=== PATIENT | male | born 1945 | race Caucasian/White ===

== ENCOUNTER 2016-12-31 01:26 | Inpatient (IN) | payer OTHER, MEDICARE ==
[~2016-12-31] VITALS: Ht 177.8 cm; Wt 203.4 kg
[2016-12-31 01:29] VITALS: BP_SYST 108
[2016-12-31] MEDS ORDERED: ASPIRIN 81 MG TAB.CHEW PO ONE (02:00)
[2016-12-31 02:03] LABS: BASOPHILS % (AUTO) 0.6 % (0.0-2.0); EOSINOPHILS # (AUTO) 0.6 K/uL (0.0-0.4); EOSINOPHILS % (AUTO) 8.1 % (0.0-4.0); HEMATOCRIT 37.6 % (36-54); HEMOGLOBIN 12.2 g/dL (14.0-18.0); LYMPHOCYTES # (AUTO) 0.9 K/uL (1.0-5.5); LYMPHOCYTES % (AUTO) 12.2 % (20.5-51.5); MEAN CORPUSCULAR HEMOGLOBIN 27 pg (27-31); MEAN CORPUSCULAR HGB CONC 33 % (32-36); MEAN CORPUSCULAR VOLUME 82 fL (79.0-98.0); MONOCYTES # (AUTO) 0.5 K/uL (0.0-1.0); MONOCYTES % (AUTO) 6.5 % (1.7-9.3); NEUTROPHILS % (AUTO) 72.6 % (40.0-70.0); PLATELET COUNT (AUTO) 266 K/uL (130-430); RED BLOOD CELL COUNT(AUTO) 4.61 MIL/uL (4.2-6.2); RED CELL DISTRIBUTION WIDTH 14.2 % (9.0-15.0)
[2016-12-31 02:05] LABS: CALCIUM 8.2 mg/dL (8.4-11.0); CREATININE 1.99 mg/dL (0.55-1.30); POTASSIUM 3.8 mmol/L (3.5-5.1)
[2016-12-31 02:10] LABS: BLOOD GAS PH 7.403 (7.350-7.450)
[2016-12-31 02:11] LABS: ABG TOTAL HEMOGLOBIN 12.2 G/dL (12.0-18.0); BLOOD GAS BASE EXCESS 8.2 mmol/L (-3.0-3.0); BLOOD GAS COHb% 0.9 % (0.5-1.5); BLOOD GAS HHB 6.8 % (0.0-6.0); BLOOD O2Hb% 91.8 % (94.0-97.0)
[2016-12-31 02:13] LABS: TOTAL BILIRUBIN 0.3 mg/dL (0.0-1.0)
[2016-12-31 02:14] LABS: ALBUMIN 2.5 g/dL (3.4-4.8)
[2016-12-31 02:43] LABS: INR 1.8 (0.80-1.20); PROTHROMBIN TIME 20.5 SECS (9.5-12.5)
[2016-12-31] MEDS ORDERED: NACL 0.9% 1,000 ML IV ONE (05:15)
[2016-12-31] MEDS ORDERED: PREG75CA PO (06:48)
[2016-12-31] MEDS ORDERED: FERR-57 PO (06:48)
[2016-12-31] MEDS ORDERED: LOSA25TA3 PO (06:48)
[2016-12-31] MEDS ORDERED: GABA600T PO (06:48)
[2016-12-31] MEDS ORDERED: NYST15PO2 TP (06:48)
[2016-12-31] MEDS ORDERED: WARF7.5T2 PO (06:48)
[2016-12-31] MEDS ORDERED: ASCO-339 PO (06:48)
[2016-12-31] MEDS ORDERED: HYDR-4100 PO (06:48)
[2016-12-31] MEDS ORDERED: VITD2000 PO (06:48)
[2016-12-31] MEDS ORDERED: BECL8.7A5 INH (06:48)
[2016-12-31] MEDS ORDERED: ZINC10LO5 PO (06:48)
[2016-12-31] MEDS ORDERED: MAGN250T31 PO (06:48)
[2016-12-31] MEDS ORDERED: OMEP20CA10 PO (06:48)
[2016-12-31] MEDS ORDERED: MULT-1117 PO (06:48)
[2016-12-31] MEDS ORDERED: INSU100V11 SQ (06:48)
[2016-12-31] MEDS ORDERED: DONE5TAB3 PO (06:48)
[2016-12-31] MEDS ORDERED: PRIM50TA31 PO (06:48)
[2016-12-31] MEDS ORDERED: ALBU2.5V7 INH (06:48)
[2016-12-31] MEDS ORDERED: SITA100T7 PO (06:48)
[2016-12-31] MEDS ORDERED: NOR10 PO (06:48)
[2016-12-31] MEDS ORDERED: FURO40TA5 PO (06:48)
[2016-12-31] MEDS ORDERED: LEVO100T9 PO (06:48)
[2016-12-31] MEDS ORDERED: GLUCOSE 15 GM GEL (in 37.5 GM TUBE) PO PRN ×2 (08:15)
[2016-12-31] MEDS ORDERED: DEXTROSE 50%-WATER 50 ML DISP.SYRIN IVP PRN ×2 (08:15)
[2016-12-31 08:48] VITALS: BP_SYST 148
[2016-12-31] MEDS: INSULIN REGULAR, HUMAN 100 UNITS/ML, 10 ML VIAL (novoLIN R) SUBCUT PRN ×3 (11:42→21:25)
[2016-12-31] MEDS: LEVOFLOXACIN 250 MG/D5W 50 ML IV SCH (12:00)
[2016-12-31] MEDS ORDERED: ALBUTEROL SULFATE 0.083% 2.5 MG/3 ML VIAL.NEB INH PRN ×2 (12:00→18:00)
[2016-12-31] MEDS: FUROSEMIDE 40 MG/4 ML VIAL IVP SCH (12:00)
[2016-12-31] MEDS ORDERED: IPRATROPIUM BROM 0.5 MG/2.5 ML VIAL.NEB (ATROVENT) INH PRN (12:00)
[2016-12-31 12:42] VITALS: BP_SYST 123
[2016-12-31] MEDS: ALBUTEROL SULFATE 0.083% 2.5 MG/3 ML VIAL.NEB INH SCH ×2 (13:00→19:44)
[2016-12-31] MEDS: IPRATROPIUM BROM 0.5 MG/2.5 ML VIAL.NEB (ATROVENT) INH SCH ×2 (13:00→19:44)
[2016-12-31] MEDS ORDERED: FUROSEMIDE 40 MG/4 ML VIAL IVP ONE (13:00)
[2016-12-31 13:18] LABS: BLOOD GAS PH 7.383 (7.350-7.450)
[2016-12-31 13:19] LABS: ABG TOTAL HEMOGLOBIN 12.3 G/dL (12.0-18.0); BLOOD GAS BASE EXCESS 11.3 mmol/L (-3.0-3.0); BLOOD GAS COHb% 0.8 % (0.5-1.5); BLOOD GAS HHB 5.7 % (0.0-6.0); BLOOD O2Hb% 92.9 % (94.0-97.0)
[2016-12-31 13:36] VITALS: BP_SYST 123
[2016-12-31 16:23] VITALS: BP_SYST 158
[2016-12-31] MEDS ORDERED: NON-FORMULARY MEDICATION (Zinc Gluconate (Zinc) 50 MG) PO SCH (18:00)
[2016-12-31] MEDS ORDERED: HYDROcodone/ACETAMIN 10-325 MG TAB PO SCH (18:00)
[2016-12-31] MEDS ORDERED: FUROSEMIDE 40 MG TABLET PO SCH (18:00)
[2016-12-31] MEDS: amLODIPine BESYLATE 10 MG TABLET PO SCH (19:32)
[2016-12-31] MEDS: WARFARIN SODIUM 4 MG TABLET PO SCH (19:33)
[2016-12-31 20:15] VITALS: BP_SYST 140
[2016-12-31] MEDS: GABAPENTIN 400 MG CAPSULE PO SCH (20:33)
[2016-12-31] MEDS: DONEPEZIL HCL 5 MG TABLET (ARICEPT) PO SCH (20:33)
[2016-12-31] MEDS: HYDROcodone/ACETAMIN 10-325 MG TAB PO PRN (20:34)
[2016-12-31] MEDS: CEFEPIME 1 GM in D5W 50 ML IV SCH (21:19)
[2017-01-01] VITALS (7 sets, daily range): BP systolic 97–143
[2017-01-01] MEDS: IPRATROPIUM BROM 0.5 MG/2.5 ML VIAL.NEB (ATROVENT) INH SCH ×4 (01:26→19:34)
[2017-01-01] MEDS: ALBUTEROL SULFATE 0.083% 2.5 MG/3 ML VIAL.NEB INH SCH ×4 (01:26→19:34)
[2017-01-01] MEDS: LEVOTHYROXINE SODIUM 0.1 MG TABLET PO SCH (06:21)
[2017-01-01] MEDS: ASCORBIC ACID 500 MG TABLET PO SCH (06:21)
[2017-01-01] MEDS: INSULIN REGULAR, HUMAN 100 UNITS/ML, 10 ML VIAL (novoLIN R) SUBCUT PRN ×3 (06:28→22:23)
[2017-01-01 07:49] LABS: BASOPHILS % (AUTO) 0.3 % (0.0-2.0); EOSINOPHILS # (AUTO) 0.9 K/uL (0.0-0.4); EOSINOPHILS % (AUTO) 9.4 % (0.0-4.0); HEMATOCRIT 37.9 % (36-54); HEMOGLOBIN 12.1 g/dL (14.0-18.0); LYMPHOCYTES # (AUTO) 0.6 K/uL (1.0-5.5); LYMPHOCYTES % (AUTO) 6.5 % (20.5-51.5); MEAN CORPUSCULAR HEMOGLOBIN 26 pg (27-31); MEAN CORPUSCULAR HGB CONC 32 % (32-36); MEAN CORPUSCULAR VOLUME 82 fL (79.0-98.0); MONOCYTES # (AUTO) 0.2 K/uL (0.0-1.0); MONOCYTES % (AUTO) 1.6 % (1.7-9.3); NEUTROPHILS # (AUTO) 7.9 K/uL (1.8-7.7); NEUTROPHILS % (AUTO) 82.2 % (40.0-70.0); PLATELET COUNT (AUTO) 312 K/uL (130-430); RED BLOOD CELL COUNT(AUTO) 4.63 MIL/uL (4.2-6.2); RED CELL DISTRIBUTION WIDTH 14.2 % (9.0-15.0)
[2017-01-01 07:58] LABS: WHITE BLOOD COUNT (AUTO) 9.6 K/uL (4.8-10.8)
[2017-01-01 08:07] LABS: BLOOD GAS PH 7.419 (7.350-7.450)
[2017-01-01 08:07] LABS: PROTHROMBIN TIME 22.5 SECS (9.5-12.5)
[2017-01-01 08:08] LABS: ABG TOTAL HEMOGLOBIN 13.3 G/dL (12.0-18.0); BLOOD GAS BASE EXCESS 8.2 mmol/L (-3.0-3.0); BLOOD GAS HHB 18.8 % (0.0-6.0)
[2017-01-01 08:11] LABS: ALBUMIN 2.5 g/dL (3.4-4.8); CALCIUM 8.2 mg/dL (8.4-11.0); CREATININE 2.03 mg/dL (0.55-1.30); POTASSIUM 3.3 mmol/L (3.5-5.1); TOTAL BILIRUBIN 0.3 mg/dL (0.0-1.0); TOTAL PROTEIN, SERUM 7.8 g/dL (6.4-8.3)
[2017-01-01] MEDS: CEFEPIME 1 GM in D5W 50 ML IV SCH ×2 (09:10→22:07)
[2017-01-01] MEDS: CHOLECALCIFEROL (VITAMIN D3) 2,000 UNIT TABLET PO SCH (09:11)
[2017-01-01] MEDS: PREGABALIN 75 MG CAPSULE (LYRICA) PO SCH (09:11)
[2017-01-01] MEDS: OMEPRAZOLE 20 MG CAPSULE.DR (PriLOSEC) PO SCH (09:11)
[2017-01-01] MEDS: MULTIVITAMINS TAB 1 TABLET PO SCH (09:11)
[2017-01-01] MEDS: PRIMIDONE 50 MG TABLET PO SCH (09:11)
[2017-01-01] MEDS: FUROSEMIDE 40 MG/4 ML VIAL IVP SCH (09:12)
[2017-01-01] MEDS: LOSARTAN POTASSIUM 25 MG TABLET PO SCH (09:12)
[2017-01-01] MEDS: NYSTATIN 15 GM TOPICAL POWDER TP SCH (09:13)
[2017-01-01] MEDS: LEVOFLOXACIN 250 MG/D5W 50 ML IV SCH (12:00)
[2017-01-01] MEDS ORDERED: VANCOMYCIN HCL 1,750 MG in NS 500 ML IV SCH (14:00)
[2017-01-01] MEDS ORDERED: MAGNESIUM OXIDE 400 MG TABLET PO SCH (17:00)
[2017-01-01] MEDS: WARFARIN SODIUM 4 MG TABLET PO SCH (17:40)
[2017-01-01] MEDS: FERROUS SULFATE 325 MG TABLET.DR PO SCH (17:40)
[2017-01-01] MEDS: amLODIPine BESYLATE 10 MG TABLET PO SCH (17:45)
[2017-01-01] MEDS: MUPIROCIN 2% TOPICAL OINTMENT 22 GM TP SCH ×2 (17:47→21:39)
[2017-01-01] MEDS: FLUTICASONE FUROATE 200 MCG BLST.W.DEV INH SCH (17:47)
[2017-01-01] MEDS ORDERED: CEFEPIME 1 GM/VIAL (MAXIPIME) ONE (21:28)
[2017-01-01] MEDS: DONEPEZIL HCL 5 MG TABLET (ARICEPT) PO SCH (21:40)
[2017-01-01] MEDS: GABAPENTIN 400 MG CAPSULE PO SCH (21:40)
[2017-01-02] VITALS: BP_SYST 101
[2017-01-02] MEDS: ALBUTEROL SULFATE 0.083% 2.5 MG/3 ML VIAL.NEB INH SCH ×4 (00:24→19:00)
[2017-01-02] MEDS: IPRATROPIUM BROM 0.5 MG/2.5 ML VIAL.NEB (ATROVENT) INH SCH ×4 (00:25→19:00)
[2017-01-02 04:19] VITALS: BP_SYST 104
[2017-01-02] MEDS: LEVOTHYROXINE SODIUM 0.1 MG TABLET PO SCH (05:48)
[2017-01-02] MEDS: ASCORBIC ACID 500 MG TABLET PO SCH (05:48)
[2017-01-02 07:32] LABS: BASOPHILS % (AUTO) 0.1 % (0.0-2.0); EOSINOPHILS # (AUTO) 0.4 K/uL (0.0-0.4); EOSINOPHILS % (AUTO) 3.4 % (0.0-4.0); HEMATOCRIT 30.8 % (36-54); HEMOGLOBIN 10.2 g/dL (14.0-18.0); LYMPHOCYTES # (AUTO) 0.4 K/uL (1.0-5.5); LYMPHOCYTES % (AUTO) 3.5 % (20.5-51.5); MEAN CORPUSCULAR HEMOGLOBIN 27 pg (27-31); MEAN CORPUSCULAR HGB CONC 33 % (32-36); MEAN CORPUSCULAR VOLUME 82 fL (79.0-98.0); MONOCYTES # (AUTO) 0.5 K/uL (0.0-1.0); MONOCYTES % (AUTO) 3.8 % (1.7-9.3); NEUTROPHILS # (AUTO) 11.4 K/uL (1.8-7.7); NEUTROPHILS % (AUTO) 89.2 % (40.0-70.0); PLATELET COUNT (AUTO) 243 K/uL (130-430); RED BLOOD CELL COUNT(AUTO) 3.77 MIL/uL (4.2-6.2); WHITE BLOOD COUNT (AUTO) 12.7 K/uL (4.8-10.8)
[2017-01-02 07:34] LABS: INR 3.4 (0.80-1.20)
[2017-01-02 07:45] LABS: PROTHROMBIN TIME 38.4 SECS (9.5-12.5)
[2017-01-02 07:50] LABS: ALBUMIN 2.2 g/dL (3.4-4.8); CALCIUM 7.6 mg/dL (8.4-11.0); CREATININE 2.11 mg/dL (0.55-1.30); POTASSIUM 3.6 mmol/L (3.5-5.1); TOTAL BILIRUBIN 0.3 mg/dL (0.0-1.0); TOTAL PROTEIN, SERUM 6.8 g/dL (6.4-8.3)
[2017-01-02 08:00] VITALS: BP_SYST 110
[2017-01-02] MEDS: FLUTICASONE FUROATE 200 MCG BLST.W.DEV INH SCH (09:00)
[2017-01-02] MEDS ORDERED: LIDOCAINE 1%, 20 ML MDV 0 ML ONE (09:08)
[2017-01-02] MEDS ORDERED: LIDOCAINE 2% JELLY UROJECT 10 ML MM ONE (09:08)
[2017-01-02] MEDS ORDERED: MIDAZOLAM HCL 5 MG/5 ML VIAL ONE (09:08)
[2017-01-02] MEDS ORDERED: fentaNYL CITRATE/PF 100 MCG/2 ML AMP ONE (09:08)
[2017-01-02] MEDS: FUROSEMIDE 40 MG/4 ML VIAL IVP SCH (09:28)
[2017-01-02] MEDS: MUPIROCIN 2% TOPICAL OINTMENT 22 GM TP SCH ×2 (09:28→21:09)
[2017-01-02] MEDS: NYSTATIN 15 GM TOPICAL POWDER TP SCH (09:29)
[2017-01-02] MEDS ORDERED: LIDOCAINE MPF 2% 5mL VIAL INH ONE (09:30)
[2017-01-02] MEDS: CEFEPIME 1 GM in D5W 50 ML IV SCH ×2 (10:53→20:28)
[2017-01-02 11:20] LABS: ABG TOTAL HEMOGLOBIN 10.9 G/dL (12.0-18.0); BLOOD GAS BASE EXCESS 9.6 mmol/L (-3.0-3.0); BLOOD GAS COHb% 0.5 % (0.5-1.5); BLOOD GAS HHB 6.2 % (0.0-6.0); BLOOD O2Hb% 93.1 % (94.0-97.0)
[2017-01-02 12:24] VITALS: BP_SYST 115
[2017-01-02] MEDS: ACETYLCYSTEINE 20% 4 ML VIAL (RT) INH SCH ×2 (15:00→20:48)
[2017-01-02 15:36] VITALS: BP_SYST 103
[2017-01-02] MEDS: PREGABALIN 75 MG CAPSULE (LYRICA) PO SCH (15:38)
[2017-01-02] MEDS: LOSARTAN POTASSIUM 25 MG TABLET PO SCH (15:38)
[2017-01-02] MEDS: MULTIVITAMINS TAB 1 TABLET PO SCH (15:38)
[2017-01-02] MEDS: PRIMIDONE 50 MG TABLET PO SCH (15:39)
[2017-01-02] MEDS: OMEPRAZOLE 20 MG CAPSULE.DR (PriLOSEC) PO SCH (15:39)
[2017-01-02] MEDS: CHOLECALCIFEROL (VITAMIN D3) 2,000 UNIT TABLET PO SCH (15:39)
[2017-01-02] MEDS: amLODIPine BESYLATE 10 MG TABLET PO SCH (17:57)
[2017-01-02] MEDS: INSULIN REGULAR, HUMAN 100 UNITS/ML, 10 ML VIAL (novoLIN R) SUBCUT PRN ×2 (18:03→21:41)
[2017-01-02] MEDS: FERROUS SULFATE 325 MG TABLET.DR PO SCH (18:04)
[2017-01-02 19:30] VITALS: BP_SYST 110
[2017-01-02] MEDS: DONEPEZIL HCL 5 MG TABLET (ARICEPT) PO SCH (21:08)
[2017-01-02] MEDS: GABAPENTIN 400 MG CAPSULE PO SCH (21:13)
[2017-01-02] MEDS: LINEZOLID 300 ML IV SCH (21:17)
[2017-01-03] VITALS: BP_SYST 139
[2017-01-03] MEDS: ALBUTEROL SULFATE 0.083% 2.5 MG/3 ML VIAL.NEB INH SCH ×4 (00:57→19:49)
[2017-01-03] MEDS: IPRATROPIUM BROM 0.5 MG/2.5 ML VIAL.NEB (ATROVENT) INH SCH ×4 (00:57→19:49)
[2017-01-03 04:59] VITALS: BP_SYST 119
[2017-01-03] MEDS: ASCORBIC ACID 500 MG TABLET PO SCH (06:05)
[2017-01-03] MEDS: LEVOTHYROXINE SODIUM 0.1 MG TABLET PO SCH (06:05)
[2017-01-03] MEDS: INSULIN REGULAR, HUMAN 100 UNITS/ML, 10 ML VIAL (novoLIN R) SUBCUT PRN ×4 (06:13→20:55)
[2017-01-03] MEDS: ACETYLCYSTEINE 20% 4 ML VIAL (RT) INH SCH ×3 (07:18→19:49)
[2017-01-03 07:25] LABS: BASOPHILS # (AUTO) 0.1 K/uL (0.0-0.2); BASOPHILS % (AUTO) 0.6 % (0.0-2.0); EOSINOPHILS # (AUTO) 0.7 K/uL (0.0-0.4); HEMATOCRIT 31.9 % (36-54); HEMOGLOBIN 10.6 g/dL (14.0-18.0); LYMPHOCYTES # (AUTO) 0.7 K/uL (1.0-5.5); LYMPHOCYTES % (AUTO) 6.9 % (20.5-51.5); MEAN CORPUSCULAR HEMOGLOBIN 27 pg (27-31); MEAN CORPUSCULAR HGB CONC 33 % (32-36); MEAN CORPUSCULAR VOLUME 82 fL (79.0-98.0); MONOCYTES # (AUTO) 0.4 K/uL (0.0-1.0); MONOCYTES % (AUTO) 3.8 % (1.7-9.3); NEUTROPHILS # (AUTO) 8.2 K/uL (1.8-7.7); NEUTROPHILS % (AUTO) 81.7 % (40.0-70.0); PLATELET COUNT (AUTO) 259 K/uL (130-430); RED BLOOD CELL COUNT(AUTO) 3.88 MIL/uL (4.2-6.2); WHITE BLOOD COUNT (AUTO) 10.1 K/uL (4.8-10.8)
[2017-01-03 07:50] LABS: ALBUMIN 2.1 g/dL (3.4-4.8); CALCIUM 7.6 mg/dL (8.4-11.0); CREATININE 1.97 mg/dL (0.55-1.30); POTASSIUM 3.7 mmol/L (3.5-5.1); TOTAL BILIRUBIN 0.3 mg/dL (0.0-1.0); TOTAL PROTEIN, SERUM 6.8 g/dL (6.4-8.3)
[2017-01-03 07:57] LABS: INR 2.9 (0.80-1.20)
[2017-01-03 08:09] LABS: PROTHROMBIN TIME 33.1 SECS (9.5-12.5)
[2017-01-03 08:24] VITALS: BP_SYST 128
[2017-01-03] MEDS: PREGABALIN 75 MG CAPSULE (LYRICA) PO SCH (08:41)
[2017-01-03] MEDS: MULTIVITAMINS TAB 1 TABLET PO SCH (08:41)
[2017-01-03] MEDS: LOSARTAN POTASSIUM 25 MG TABLET PO SCH (08:41)
[2017-01-03] MEDS: PRIMIDONE 50 MG TABLET PO SCH (08:41)
[2017-01-03] MEDS: OMEPRAZOLE 20 MG CAPSULE.DR (PriLOSEC) PO SCH (08:41)
[2017-01-03] MEDS: CHOLECALCIFEROL (VITAMIN D3) 2,000 UNIT TABLET PO SCH (08:41)
[2017-01-03] MEDS: CEFEPIME 1 GM in D5W 50 ML IV SCH ×2 (08:43→20:29)
[2017-01-03] MEDS: MUPIROCIN 2% TOPICAL OINTMENT 22 GM TP SCH ×2 (08:44→21:56)
[2017-01-03] MEDS: NYSTATIN 15 GM TOPICAL POWDER TP SCH (08:44)
[2017-01-03] MEDS: FUROSEMIDE 40 MG/4 ML VIAL IVP SCH (08:44)
[2017-01-03] MEDS: FLUTICASONE FUROATE 200 MCG BLST.W.DEV INH SCH (09:00)
[2017-01-03 09:21] VITALS: BP_SYST 128
[2017-01-03] MEDS: LINEZOLID 300 ML IV SCH ×2 (09:32→21:54)
[2017-01-03] MEDS: HYDROcodone/ACETAMIN 10-325 MG TAB PO PRN (10:35)
[2017-01-03 12:09] VITALS: BP_SYST 99
[2017-01-03 16:45] VITALS: BP_SYST 112
[2017-01-03] MEDS: FERROUS SULFATE 325 MG TABLET.DR PO SCH (17:33)
[2017-01-03] MEDS: amLODIPine BESYLATE 10 MG TABLET PO SCH (17:33)
[2017-01-03] MEDS: WARFARIN SODIUM 4 MG TABLET PO SCH (18:20)
[2017-01-03] MEDS: DONEPEZIL HCL 5 MG TABLET (ARICEPT) PO SCH (20:50)
[2017-01-03] MEDS: GABAPENTIN 400 MG CAPSULE PO SCH (20:51)
[2017-01-03] MEDS: ZOLPIDEM TARTRATE 5 MG TABLET PO PRN (23:00)
[2017-01-04 00:03] VITALS: BP_SYST 109
[2017-01-04] MEDS: ALBUTEROL SULFATE 0.083% 2.5 MG/3 ML VIAL.NEB INH SCH ×4 (02:04→19:32)
[2017-01-04] MEDS: IPRATROPIUM BROM 0.5 MG/2.5 ML VIAL.NEB (ATROVENT) INH SCH ×4 (02:05→19:32)
[2017-01-04 03:45] VITALS: BP_SYST 104
[2017-01-04] MEDS: LEVOTHYROXINE SODIUM 0.1 MG TABLET PO SCH (06:07)
[2017-01-04] MEDS: ASCORBIC ACID 500 MG TABLET PO SCH (06:07)
[2017-01-04] MEDS: INSULIN REGULAR, HUMAN 100 UNITS/ML, 10 ML VIAL (novoLIN R) SUBCUT PRN ×4 (06:11→22:15)
[2017-01-04 07:19] LABS: EOSINOPHILS # (AUTO) 0.8 K/uL (0.0-0.4); EOSINOPHILS % (AUTO) 8.3 % (0.0-4.0); HEMATOCRIT 33.4 % (36-54); HEMOGLOBIN 10.7 g/dL (14.0-18.0); LYMPHOCYTES # (AUTO) 0.7 K/uL (1.0-5.5); LYMPHOCYTES % (AUTO) 7.7 % (20.5-51.5); MEAN CORPUSCULAR HEMOGLOBIN 27 pg (27-31); MEAN CORPUSCULAR HGB CONC 32 % (32-36); MEAN CORPUSCULAR VOLUME 83 fL (79.0-98.0); MONOCYTES # (AUTO) 0.4 K/uL (0.0-1.0); MONOCYTES % (AUTO) 4.2 % (1.7-9.3); NEUTROPHILS # (AUTO) 7.5 K/uL (1.8-7.7); NEUTROPHILS % (AUTO) 79.8 % (40.0-70.0); PLATELET COUNT (AUTO) 287 K/uL (130-430); RED BLOOD CELL COUNT(AUTO) 4.05 MIL/uL (4.2-6.2); WHITE BLOOD COUNT (AUTO) 9.4 K/uL (4.8-10.8)
[2017-01-04] MEDS: ACETYLCYSTEINE 20% 4 ML VIAL (RT) INH SCH ×3 (07:25→19:54)
[2017-01-04 07:55] VITALS: BP_SYST 119
[2017-01-04 07:56] LABS: INR 2.6 (0.80-1.20); PROTHROMBIN TIME 28.8 SECS (9.5-12.5)
[2017-01-04 07:57] LABS: CHLORIDE 99 mmol/L (98-107); CREATININE 2.06 mg/dL (0.55-1.30); GLUCOSE 247 mg/dL (70-99); POTASSIUM 4.1 mmol/L (3.5-5.1); SODIUM SERUM 137 mmol/L (136-145); UREA NITROGEN, BLOOD 51 mg/dL (8-21)
[2017-01-04 07:59] LABS: ANION GAP < 3 (5-15); GFR AFRICAN AMERICAN 41 mL/min (>90)
[2017-01-04] MEDS: CEFEPIME 1 GM in D5W 50 ML IV SCH ×2 (08:30→21:13)
[2017-01-04] MEDS: FUROSEMIDE 40 MG/4 ML VIAL IVP SCH (08:31)
[2017-01-04] MEDS: MUPIROCIN 2% TOPICAL OINTMENT 22 GM TP SCH ×2 (08:32→22:13)
[2017-01-04] MEDS: CHOLECALCIFEROL (VITAMIN D3) 2,000 UNIT TABLET PO SCH (08:33)
[2017-01-04] MEDS: PREGABALIN 75 MG CAPSULE (LYRICA) PO SCH (08:34)
[2017-01-04] MEDS: MULTIVITAMINS TAB 1 TABLET PO SCH (08:34)
[2017-01-04] MEDS: OMEPRAZOLE 20 MG CAPSULE.DR (PriLOSEC) PO SCH (08:34)
[2017-01-04] MEDS: NYSTATIN 15 GM TOPICAL POWDER TP SCH (08:35)
[2017-01-04] MEDS: FLUTICASONE FUROATE 200 MCG BLST.W.DEV INH SCH (09:00)
[2017-01-04] MEDS: LOSARTAN POTASSIUM 25 MG TABLET PO SCH (09:00)
[2017-01-04] MEDS: LINEZOLID 300 ML IV SCH ×2 (10:17→22:12)
[2017-01-04] MEDS: PRIMIDONE 50 MG TABLET PO SCH (10:18)
[2017-01-04 15:33] VITALS: BP_SYST 149
[2017-01-04 15:51] VITALS: BP_SYST 108
[2017-01-04 17:25] VITALS: BP_SYST 108
[2017-01-04] MEDS: FERROUS SULFATE 325 MG TABLET.DR PO SCH (18:25)
[2017-01-04] MEDS: amLODIPine BESYLATE 10 MG TABLET PO SCH (18:27)
[2017-01-04] MEDS: WARFARIN SODIUM 4 MG TABLET PO SCH (18:28)
[2017-01-04] MEDS: DONEPEZIL HCL 5 MG TABLET (ARICEPT) PO SCH (21:12)
[2017-01-04] MEDS: GABAPENTIN 400 MG CAPSULE PO SCH (21:12)
[2017-01-05] VITALS (8 sets, daily range): BP systolic 100–138
[2017-01-05] MEDS: ALBUTEROL SULFATE 0.083% 2.5 MG/3 ML VIAL.NEB INH SCH ×4 (05:34→20:15)
[2017-01-05] MEDS: IPRATROPIUM BROM 0.5 MG/2.5 ML VIAL.NEB (ATROVENT) INH SCH ×4 (05:35→20:15)
[2017-01-05] MEDS: ASCORBIC ACID 500 MG TABLET PO SCH (06:18)
[2017-01-05] MEDS: LEVOTHYROXINE SODIUM 0.1 MG TABLET PO SCH (06:18)
[2017-01-05] MEDS: INSULIN REGULAR, HUMAN 100 UNITS/ML, 10 ML VIAL (novoLIN R) SUBCUT PRN ×4 (06:19→21:09)
[2017-01-05] MEDS: ACETYLCYSTEINE 20% 4 ML VIAL (RT) INH SCH ×2 (07:00→17:19)
[2017-01-05 07:13] LABS: INR 3.1 (0.80-1.20)
[2017-01-05 07:38] LABS: PROTHROMBIN TIME 34.8 SECS (9.5-12.5)
[2017-01-05] MEDS: CEFEPIME 1 GM in D5W 50 ML IV SCH ×2 (08:28→21:17)
[2017-01-05] MEDS: FUROSEMIDE 40 MG/4 ML VIAL IVP SCH (08:29)
[2017-01-05] MEDS: NYSTATIN 15 GM TOPICAL POWDER TP SCH (08:30)
[2017-01-05] MEDS: MUPIROCIN 2% TOPICAL OINTMENT 22 GM TP SCH ×2 (08:30→21:18)
[2017-01-05] MEDS: LOSARTAN POTASSIUM 25 MG TABLET PO SCH (08:30)
[2017-01-05] MEDS: CHOLECALCIFEROL (VITAMIN D3) 2,000 UNIT TABLET PO SCH (08:30)
[2017-01-05] MEDS: OMEPRAZOLE 20 MG CAPSULE.DR (PriLOSEC) PO SCH (08:30)
[2017-01-05] MEDS: PRIMIDONE 50 MG TABLET PO SCH (08:31)
[2017-01-05] MEDS: PREGABALIN 75 MG CAPSULE (LYRICA) PO SCH (08:31)
[2017-01-05] MEDS: NEPHROVITE, (FOLIC ACID/VITAMIN B COMP W-C 1 TAB) PO SCH (08:31)
[2017-01-05] MEDS: FLUTICASONE FUROATE 200 MCG BLST.W.DEV INH SCH (09:00)
[2017-01-05] MEDS: LINEZOLID 300 ML IV SCH ×2 (10:11→21:17)
[2017-01-05] MEDS: WARFARIN SODIUM 2 MG TABLET PO SCH (17:46)
[2017-01-05] MEDS: FERROUS SULFATE 325 MG TABLET.DR PO SCH (17:47)
[2017-01-05] MEDS: amLODIPine BESYLATE 10 MG TABLET PO SCH (17:50)
[2017-01-05] MEDS: DONEPEZIL HCL 5 MG TABLET (ARICEPT) PO SCH (21:18)
[2017-01-05] MEDS: GABAPENTIN 400 MG CAPSULE PO SCH (21:21)
[2017-01-06] MEDS: IPRATROPIUM BROM 0.5 MG/2.5 ML VIAL.NEB (ATROVENT) INH SCH ×5 (01:00→22:51)
[2017-01-06] MEDS: ALBUTEROL SULFATE 0.083% 2.5 MG/3 ML VIAL.NEB INH SCH ×5 (01:00→22:51)
[2017-01-06] MEDS: ACETYLCYSTEINE 20% 4 ML VIAL (RT) INH SCH ×4 (02:19→22:50)
[2017-01-06 05:13] VITALS: BP_SYST 99
[2017-01-06] MEDS: INSULIN REGULAR, HUMAN 100 UNITS/ML, 10 ML VIAL (novoLIN R) SUBCUT PRN ×4 (07:00→21:43)
[2017-01-06] MEDS: LEVOTHYROXINE SODIUM 0.1 MG TABLET PO SCH (07:01)
[2017-01-06] MEDS: ASCORBIC ACID 500 MG TABLET PO SCH (07:01)
[2017-01-06 08:04] VITALS: BP_SYST 131
[2017-01-06 08:05] LABS: EOSINOPHILS # (AUTO) 0.6 K/uL (0.0-0.4); EOSINOPHILS % (AUTO) 6.4 % (0.0-4.0); HEMATOCRIT 30.9 % (36-54); HEMOGLOBIN 10.1 g/dL (14.0-18.0); LYMPHOCYTES # (AUTO) 0.9 K/uL (1.0-5.5); LYMPHOCYTES % (AUTO) 8.8 % (20.5-51.5); MEAN CORPUSCULAR HEMOGLOBIN 27 pg (27-31); MEAN CORPUSCULAR HGB CONC 33 % (32-36); MEAN CORPUSCULAR VOLUME 82 fL (79.0-98.0); MONOCYTES # (AUTO) 0.5 K/uL (0.0-1.0); MONOCYTES % (AUTO) 4.7 % (1.7-9.3); NEUTROPHILS # (AUTO) 7.9 K/uL (1.8-7.7); NEUTROPHILS % (AUTO) 80.1 % (40.0-70.0); PLATELET COUNT (AUTO) 280 K/uL (130-430); RED BLOOD CELL COUNT(AUTO) 3.77 MIL/uL (4.2-6.2); RED CELL DISTRIBUTION WIDTH 13.9 % (9.0-15.0); WHITE BLOOD COUNT (AUTO) 9.9 K/uL (4.8-10.8)
[2017-01-06 08:10] LABS: INR 2.2 (0.80-1.20); PROTHROMBIN TIME 24.2 SECS (9.5-12.5)
[2017-01-06] MEDS: NYSTATIN 15 GM TOPICAL POWDER TP SCH (08:20)
[2017-01-06] MEDS: FUROSEMIDE 40 MG/4 ML VIAL IVP SCH (08:20)
[2017-01-06] MEDS: CEFEPIME 1 GM in D5W 50 ML IV SCH ×2 (08:20→21:33)
[2017-01-06] MEDS: CHOLECALCIFEROL (VITAMIN D3) 2,000 UNIT TABLET PO SCH (08:21)
[2017-01-06] MEDS: PREGABALIN 75 MG CAPSULE (LYRICA) PO SCH (08:21)
[2017-01-06] MEDS: LOSARTAN POTASSIUM 25 MG TABLET PO SCH (08:21)
[2017-01-06] MEDS: NEPHROVITE, (FOLIC ACID/VITAMIN B COMP W-C 1 TAB) PO SCH (08:21)
[2017-01-06] MEDS: OMEPRAZOLE 20 MG CAPSULE.DR (PriLOSEC) PO SCH (08:21)
[2017-01-06] MEDS: PRIMIDONE 50 MG TABLET PO SCH (08:21)
[2017-01-06 08:22] LABS: CALCIUM 7.5 mg/dL (8.4-11.0); CREATININE 2.15 mg/dL (0.55-1.30); POTASSIUM 3.5 mmol/L (3.5-5.1); TOTAL BILIRUBIN 0.2 mg/dL (0.0-1.0); TOTAL PROTEIN, SERUM 6.3 g/dL (6.4-8.3)
[2017-01-06] MEDS: FLUTICASONE FUROATE 200 MCG BLST.W.DEV INH SCH (09:00)
[2017-01-06] MEDS: LINEZOLID 300 ML IV SCH ×2 (09:09→21:33)
[2017-01-06] MEDS: MUPIROCIN 2% TOPICAL OINTMENT 22 GM TP SCH ×2 (09:12→21:35)
[2017-01-06 12:02] VITALS: BP_SYST 106
[2017-01-06 15:18] VITALS: BP_SYST 106
[2017-01-06 16:32] VITALS: BP_SYST 119
[2017-01-06] MEDS: FERROUS SULFATE 325 MG TABLET.DR PO SCH (17:36)
[2017-01-06] MEDS: WARFARIN SODIUM 2 MG TABLET PO SCH (17:38)
[2017-01-06] MEDS: amLODIPine BESYLATE 10 MG TABLET PO SCH (17:40)
[2017-01-06] MEDS: DONEPEZIL HCL 5 MG TABLET (ARICEPT) PO SCH (21:32)
[2017-01-06] MEDS: GABAPENTIN 400 MG CAPSULE PO SCH (21:32)
[2017-01-06 23:55] VITALS: BP_SYST 119
[2017-01-07 04:08] VITALS: BP_SYST 122
[2017-01-07] MEDS: INSULIN REGULAR, HUMAN 100 UNITS/ML, 10 ML VIAL (novoLIN R) SUBCUT PRN ×3 (06:33→21:09)
[2017-01-07] MEDS: ASCORBIC ACID 500 MG TABLET PO SCH (06:33)
[2017-01-07] MEDS: LEVOTHYROXINE SODIUM 0.1 MG TABLET PO SCH (06:33)
[2017-01-07 08:00] VITALS: BP_SYST 115
[2017-01-07] MEDS: LINEZOLID 300 ML IV SCH (09:00)
[2017-01-07] MEDS: FLUTICASONE FUROATE 200 MCG BLST.W.DEV INH SCH (09:00)
[2017-01-07] MEDS: FUROSEMIDE 40 MG/4 ML VIAL IVP SCH (09:00)
[2017-01-07] MEDS: NEPHROVITE, (FOLIC ACID/VITAMIN B COMP W-C 1 TAB) PO SCH (09:18)
[2017-01-07] MEDS: CHOLECALCIFEROL (VITAMIN D3) 2,000 UNIT TABLET PO SCH (09:18)
[2017-01-07] MEDS: OMEPRAZOLE 20 MG CAPSULE.DR (PriLOSEC) PO SCH (09:19)
[2017-01-07] MEDS: PREGABALIN 75 MG CAPSULE (LYRICA) PO SCH (09:19)
[2017-01-07] MEDS: PRIMIDONE 50 MG TABLET PO SCH (09:19)
[2017-01-07] MEDS: LOSARTAN POTASSIUM 25 MG TABLET PO SCH (09:21)
[2017-01-07] MEDS: MUPIROCIN 2% TOPICAL OINTMENT 22 GM TP SCH ×2 (09:22→21:06)
[2017-01-07] MEDS: NYSTATIN 15 GM TOPICAL POWDER TP SCH (09:22)
[2017-01-07] MEDS: ALBUTEROL SULFATE 0.083% 2.5 MG/3 ML VIAL.NEB INH SCH ×3 (09:32→19:48)
[2017-01-07] MEDS: ACETYLCYSTEINE 20% 4 ML VIAL (RT) INH SCH ×3 (09:33→20:15)
[2017-01-07] MEDS: IPRATROPIUM BROM 0.5 MG/2.5 ML VIAL.NEB (ATROVENT) INH SCH ×3 (09:33→19:48)
[2017-01-07 12:15] VITALS: BP_SYST 110
[2017-01-07] MEDS ORDERED: COMMUNICATION ORDER XX ONE (14:45)
[2017-01-07 16:00] VITALS: BP_SYST 117
[2017-01-07] MEDS: FERROUS SULFATE 325 MG TABLET.DR PO SCH (17:21)
[2017-01-07] MEDS: amLODIPine BESYLATE 10 MG TABLET PO SCH (17:23)
[2017-01-07] MEDS: WARFARIN SODIUM 2 MG TABLET PO SCH (17:25)
[2017-01-07 19:00] VITALS: BP_SYST 105
[2017-01-07 20:00] VITALS: BP_SYST 105
[2017-01-07] MEDS: DONEPEZIL HCL 5 MG TABLET (ARICEPT) PO SCH (21:03)
[2017-01-07] MEDS: LINEZOLID 600 MG TABLET PO SCH (21:04)
[2017-01-07] MEDS: GABAPENTIN 400 MG CAPSULE PO SCH (21:04)
[2017-01-08 00:09] VITALS: BP_SYST 94
[2017-01-08] MEDS: ALBUTEROL SULFATE 0.083% 2.5 MG/3 ML VIAL.NEB INH SCH ×4 (00:11→19:51)
[2017-01-08] MEDS: IPRATROPIUM BROM 0.5 MG/2.5 ML VIAL.NEB (ATROVENT) INH SCH ×4 (00:12→19:51)
[2017-01-08 03:57] VITALS: BP_SYST 105
[2017-01-08] MEDS: LEVOTHYROXINE SODIUM 0.1 MG TABLET PO SCH (06:33)
[2017-01-08] MEDS: ASCORBIC ACID 500 MG TABLET PO SCH (06:34)
[2017-01-08 06:58] LABS: INR 1.9 (0.80-1.20); PROTHROMBIN TIME 20.7 SECS (9.5-12.5)
[2017-01-08] MEDS: ACETYLCYSTEINE 20% 4 ML VIAL (RT) INH SCH ×2 (07:00→15:36)
[2017-01-08] MEDS: INSULIN REGULAR, HUMAN 100 UNITS/ML, 10 ML VIAL (novoLIN R) SUBCUT PRN ×4 (07:00→22:01)
[2017-01-08] MEDS: LOSARTAN POTASSIUM 25 MG TABLET PO SCH (09:00)
[2017-01-08] MEDS: NYSTATIN 15 GM TOPICAL POWDER TP SCH (09:00)
[2017-01-08] MEDS: FLUTICASONE FUROATE 200 MCG BLST.W.DEV INH SCH (09:00)
[2017-01-08] MEDS: OMEPRAZOLE 20 MG CAPSULE.DR (PriLOSEC) PO SCH (09:00)
[2017-01-08] MEDS: NEPHROVITE, (FOLIC ACID/VITAMIN B COMP W-C 1 TAB) PO SCH (09:00)
[2017-01-08] MEDS: MUPIROCIN 2% TOPICAL OINTMENT 22 GM TP SCH ×2 (09:00→22:02)
[2017-01-08] MEDS: LINEZOLID 600 MG TABLET PO SCH ×2 (09:00→22:01)
[2017-01-08] MEDS: CHOLECALCIFEROL (VITAMIN D3) 2,000 UNIT TABLET PO SCH (09:00)
[2017-01-08] MEDS: PRIMIDONE 50 MG TABLET PO SCH (09:00)
[2017-01-08] MEDS: PREGABALIN 75 MG CAPSULE (LYRICA) PO SCH (09:00)
[2017-01-08] MEDS: FUROSEMIDE 40 MG TABLET PO SCH (09:00)
[2017-01-08 10:02] VITALS: BP_SYST 141
[2017-01-08 11:42] VITALS: BP_SYST 139
[2017-01-08] MEDS: HYDROcodone/ACETAMIN 10-325 MG TAB PO PRN (14:27)
[2017-01-08 16:25] VITALS: BP_SYST 140
[2017-01-08] MEDS: FERROUS SULFATE 325 MG TABLET.DR PO SCH (17:34)
[2017-01-08] MEDS: amLODIPine BESYLATE 10 MG TABLET PO SCH (17:34)
[2017-01-08] MEDS: WARFARIN SODIUM 2 MG TABLET PO SCH (17:35)
[2017-01-08 20:00] VITALS: BP_SYST 128
[2017-01-08] MEDS: DONEPEZIL HCL 5 MG TABLET (ARICEPT) PO SCH (22:01)
[2017-01-08] MEDS: ZOLPIDEM TARTRATE 5 MG TABLET PO PRN (22:40)
[2017-01-08] MEDS: GABAPENTIN 400 MG CAPSULE PO SCH (22:41)
[2017-01-09 00:50] VITALS: BP_SYST 146
[2017-01-09] MEDS: ALBUTEROL SULFATE 0.083% 2.5 MG/3 ML VIAL.NEB INH SCH ×3 (01:00→19:00)
[2017-01-09] MEDS: IPRATROPIUM BROM 0.5 MG/2.5 ML VIAL.NEB (ATROVENT) INH SCH ×3 (01:00→19:00)
[2017-01-09 04:00] VITALS: BP_SYST 142
[2017-01-09] MEDS: LEVOTHYROXINE SODIUM 0.1 MG TABLET PO SCH (06:21)
[2017-01-09] MEDS: ASCORBIC ACID 500 MG TABLET PO SCH (06:22)
[2017-01-09] MEDS: INSULIN REGULAR, HUMAN 100 UNITS/ML, 10 ML VIAL (novoLIN R) SUBCUT PRN ×4 (06:27→22:11)
[2017-01-09] MEDS: ACETYLCYSTEINE 20% 4 ML VIAL (RT) INH SCH ×2 (07:00→20:17)
[2017-01-09 07:24] LABS: BASOPHILS % (AUTO) 0.5 % (0.0-2.0); EOSINOPHILS # (AUTO) 0.7 K/uL (0.0-0.4); HEMATOCRIT 32.3 % (36-54); HEMOGLOBIN 10.5 g/dL (14.0-18.0); LYMPHOCYTES # (AUTO) 1.2 K/uL (1.0-5.5); LYMPHOCYTES % (AUTO) 12.9 % (20.5-51.5); MEAN CORPUSCULAR HEMOGLOBIN 27 pg (27-31); MEAN CORPUSCULAR HGB CONC 33 % (32-36); MEAN CORPUSCULAR VOLUME 82 fL (79.0-98.0); MONOCYTES # (AUTO) 0.5 K/uL (0.0-1.0); MONOCYTES % (AUTO) 5.2 % (1.7-9.3); NEUTROPHILS # (AUTO) 6.9 K/uL (1.8-7.7); NEUTROPHILS % (AUTO) 74.4 % (40.0-70.0); PLATELET COUNT (AUTO) 298 K/uL (130-430); RED BLOOD CELL COUNT(AUTO) 3.92 MIL/uL (4.2-6.2); RED CELL DISTRIBUTION WIDTH 13.8 % (9.0-15.0); WHITE BLOOD COUNT (AUTO) 9.3 K/uL (4.8-10.8)
[2017-01-09 07:58] LABS: ALBUMIN 2.1 g/dL (3.4-4.8); CREATININE 1.85 mg/dL (0.55-1.30); POTASSIUM 3.5 mmol/L (3.5-5.1); TOTAL BILIRUBIN 0.2 mg/dL (0.0-1.0); TOTAL PROTEIN, SERUM 6.4 g/dL (6.4-8.3)
[2017-01-09] MEDS: FLUTICASONE FUROATE 200 MCG BLST.W.DEV INH SCH (09:00)
[2017-01-09 09:01] VITALS: BP_SYST 123
[2017-01-09] MEDS: OMEPRAZOLE 20 MG CAPSULE.DR (PriLOSEC) PO SCH (09:03)
[2017-01-09] MEDS: PREGABALIN 75 MG CAPSULE (LYRICA) PO SCH (09:03)
[2017-01-09] MEDS: CHOLECALCIFEROL (VITAMIN D3) 2,000 UNIT TABLET PO SCH (09:03)
[2017-01-09] MEDS: LINEZOLID 600 MG TABLET PO SCH ×2 (09:03→22:01)
[2017-01-09] MEDS: LOSARTAN POTASSIUM 25 MG TABLET PO SCH (09:03)
[2017-01-09] MEDS: NEPHROVITE, (FOLIC ACID/VITAMIN B COMP W-C 1 TAB) PO SCH (09:03)
[2017-01-09] MEDS: PRIMIDONE 50 MG TABLET PO SCH (09:03)
[2017-01-09] MEDS: FUROSEMIDE 40 MG TABLET PO SCH (09:04)
[2017-01-09] MEDS: MUPIROCIN 2% TOPICAL OINTMENT 22 GM TP SCH ×2 (09:06→22:02)
[2017-01-09] MEDS: NYSTATIN 15 GM TOPICAL POWDER TP SCH (09:08)
[2017-01-09 12:44] VITALS: BP_SYST 122
[2017-01-09 16:09] VITALS: BP_SYST 99
[2017-01-09] MEDS: FERROUS SULFATE 325 MG TABLET.DR PO SCH (17:23)
[2017-01-09] MEDS: WARFARIN SODIUM 2 MG TABLET PO SCH (17:25)
[2017-01-09] MEDS: amLODIPine BESYLATE 10 MG TABLET PO SCH (17:33)
[2017-01-09 20:00] VITALS: BP_SYST 125
[2017-01-09] MEDS: DONEPEZIL HCL 5 MG TABLET (ARICEPT) PO SCH (22:01)
[2017-01-09] MEDS: GABAPENTIN 400 MG CAPSULE PO SCH (22:01)
[2017-01-10] VITALS: BP_SYST 121
[2017-01-10] MEDS: IPRATROPIUM BROM 0.5 MG/2.5 ML VIAL.NEB (ATROVENT) INH SCH ×3 (01:20→13:00)
[2017-01-10] MEDS: ALBUTEROL SULFATE 0.083% 2.5 MG/3 ML VIAL.NEB INH SCH ×3 (01:20→13:00)
[2017-01-10 03:20] VITALS: BP_SYST 125
[2017-01-10] MEDS: LEVOTHYROXINE SODIUM 0.1 MG TABLET PO SCH (06:14)
[2017-01-10] MEDS: ASCORBIC ACID 500 MG TABLET PO SCH (06:14)
[2017-01-10] MEDS: INSULIN REGULAR, HUMAN 100 UNITS/ML, 10 ML VIAL (novoLIN R) SUBCUT PRN ×3 (06:24→17:24)
[2017-01-10] MEDS: ACETYLCYSTEINE 20% 4 ML VIAL (RT) INH SCH ×2 (07:48→15:00)
[2017-01-10 07:51] VITALS: BP_SYST 132
[2017-01-10] MEDS: CHOLECALCIFEROL (VITAMIN D3) 2,000 UNIT TABLET PO SCH (08:44)
[2017-01-10] MEDS: PREGABALIN 75 MG CAPSULE (LYRICA) PO SCH (08:44)
[2017-01-10] MEDS: LINEZOLID 600 MG TABLET PO SCH (08:44)
[2017-01-10] MEDS: LOSARTAN POTASSIUM 25 MG TABLET PO SCH (08:45)
[2017-01-10] MEDS: FUROSEMIDE 40 MG TABLET PO SCH (08:45)
[2017-01-10] MEDS: NEPHROVITE, (FOLIC ACID/VITAMIN B COMP W-C 1 TAB) PO SCH (08:46)
[2017-01-10] MEDS: OMEPRAZOLE 20 MG CAPSULE.DR (PriLOSEC) PO SCH (08:46)
[2017-01-10] MEDS: PRIMIDONE 50 MG TABLET PO SCH (08:50)
[2017-01-10] MEDS: NYSTATIN 15 GM TOPICAL POWDER TP SCH (08:55)
[2017-01-10] MEDS: MUPIROCIN 2% TOPICAL OINTMENT 22 GM TP SCH (08:55)
[2017-01-10] MEDS: FLUTICASONE FUROATE 200 MCG BLST.W.DEV INH SCH (10:35)
[2017-01-10 12:00] VITALS: BP_SYST 121
[2017-01-10 16:08] VITALS: BP_SYST 150
[2017-01-10] MEDS: WARFARIN SODIUM 2 MG TABLET PO SCH (17:21)
[2017-01-10] MEDS: FERROUS SULFATE 325 MG TABLET.DR PO SCH (17:24)
[2017-01-10] MEDS: amLODIPine BESYLATE 10 MG TABLET PO SCH (17:25)
[2017-01-10 18:36] VITALS: BP_SYST 150
== END 2017-01-10 20:24 | disposition hospice, home (50) | DRG 871 ==
LOC: SED 01:26 → STU 06:32
PROVIDERS: ADMIT Internal Medicine; ATTEND Internal Medicine
PROC: 5A09357 Assistance with Respiratory Ventilation, Less than 24 Consecutive Hours, Continuous Positive Airway Pressure (ICD-10-PCS; principal; 2017-01-06)
DX: A41.9 Sepsis, unspecified organism (principal); I50.43 Acute on chronic combined systolic (congestive) and diastolic (congestive) heart failure; J96.22 Acute and chronic respiratory failure with hypercapnia; N17.0 Acute kidney failure with tubular necrosis; J15.212 Pneumonia due to Methicillin resistant Staphylococcus aureus; J44.0 Chronic obstructive pulmonary disease with (acute) lower respiratory infection; I13.0 Hypertensive heart and chronic kidney disease with heart failure and stage 1 through stage 4 chronic kidney disease, or unspecified chronic kidney disease; E44.0 Moderate protein-calorie malnutrition; J44.1 Chronic obstructive pulmonary disease with (acute) exacerbation; D68.59 Other primary thrombophilia; J98.11 Atelectasis; N18.4 Chronic kidney disease, stage 4 (severe); E66.2 Morbid (severe) obesity with alveolar hypoventilation; D68.9 Coagulation defect, unspecified; L03.116 Cellulitis of left lower limb; L03.115 Cellulitis of right lower limb; Z68.44 Body mass index [BMI] 60.0-69.9, adult; D63.8 Anemia in other chronic diseases classified elsewhere; E11.51 Type 2 diabetes mellitus with diabetic peripheral angiopathy without gangrene; I27.81 Cor pulmonale (chronic); I27.2 Other secondary pulmonary hypertension; E11.21 Type 2 diabetes mellitus with diabetic nephropathy; E03.9 Hypothyroidism, unspecified; E11.22 Type 2 diabetes mellitus with diabetic chronic kidney disease; K21.9 Gastro-esophageal reflux disease without esophagitis; Z74.01 Bed confinement status; Z22.322 Carrier or suspected carrier of Methicillin resistant Staphylococcus aureus; Z86.718 Personal history of other venous thrombosis and embolism; Z98.1 Arthrodesis status; Z91.19 Patient's noncompliance with other medical treatment and regimen; Z79.899 Other long term (current) drug therapy; Z88.0 Allergy status to penicillin; Z86.711 Personal history of pulmonary embolism; Z79.4 Long term (current) use of insulin
CPT/HCPCS: 36415; 36600; 71010; 76604; 80048; 80053; 82803-TC; 82962; 83605; 83690-TC; 83880; 84484; 85025; 85610-TC; 85730-TC; 87040-TC; 87070-TC; 87081; 87205-TC; 93005; 93306; 94640; 94660; 94760; J0692; J1815; J1940; J1956; J2001; J2020; J2250; J3010; J3370; J7030; J7040; J7050; J7060